=== PATIENT | male | born 1990 | race Caucasian/White ===

== ENCOUNTER 2016-05-03 22:05 | Emergency (ER) | payer MEDICAID ==
[2016-05-03] MEDS ORDERED: Sodium Chloride 0.9% 1000 ML 1,000 ML IV STA (22:09)
[2016-05-03] MEDS ORDERED: Sodium Chloride 0.9% 1000 ML 1,000 ML ONE (22:17)
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
[2016-05-04 00:47] VITALS: BP 136/67; PULSE 78; O2SAT 97
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
== END 2016-05-04 00:46 | disposition home or self-care (01) ==
LOC: ED 22:05
DX: R56.9 Unspecified convulsions (principal); S09.90XA Unspecified injury of head, initial encounter; S06.0X1A Concussion with loss of consciousness of 30 minutes or less, initial encounter; S99.921A Unspecified injury of right foot, initial encounter; Y04.0XXA Assault by unarmed brawl or fight, initial encounter; Y93.59 Activity, other involving other sports and athletics played individually; Y92.39 Other specified sports and athletic area as the place of occurrence of the external cause
CPT/HCPCS: 70450; 70486; 72125; 73630; 99284